=== PATIENT | female | born 1960 | race Asian ===

== ENCOUNTER 2024-06-04 02:10 | Inpatient (IN) | payer MEDICARE, OTHER ==
[~2024-06-04] VITALS: Ht 157.5 cm; Wt 68.6 kg
[2024-06-04] MEDS ORDERED: LORazepam 2 MG TABLET PO PRN (03:45)
[2024-06-04] MEDS ORDERED: HALOPERIDOL 5 MG TABLET PO PRN (03:45)
[2024-06-04] MEDS ORDERED: ZOLPIDEM TARTRATE 10 MG TABLET PO PRN (03:45)
[2024-06-04 04:16] LABS: COVID AG,FIA SOURCE NASAL SWAB
[2024-06-04 04:20] LABS: BASOPHILS % (AUTO) 0.8 % (0.0-2.0); EOSINOPHILS % (AUTO) 0.9 % (1.0-6.0); HEMATOCRIT 41.1 % (36-46); LYMPHOCYTES % (AUTO) 31.7 % (22.0-44.0); MEAN CORPUSCULAR HEMOGLOBIN 22.1 pg (26.0-34.0); MEAN CORPUSCULAR HGB CONC 31.6 G/dL (31.0-37.0); MEAN CORPUSCULAR VOLUME 70 fL (80-100); MONOCYTES # (AUTO) 0.5 K/uL (0.1-1.0); MONOCYTES % (AUTO) 7.2 % (2.0-9.0); NEUTROPHILS # (AUTO) 3.8 K/uL (1.8-7.7); NEUTROPHILS % (AUTO) 59.4 % (40.0-70.0); PLATELET COUNT (AUTO) 260 K/uL (150-450); RED BLOOD CELL COUNT(AUTO) 5.87 MIL/uL (4.00-5.20); RED CELL DISTRIBUTION WIDTH 14.2 % (11.5-14.5); WHITE BLOOD COUNT (AUTO) 6.4 K/uL (4.5-11.0)
[2024-06-04 04:23] LABS: RBC MORPHOLOGY COMMENT ABNORMAL RBC MORPH
[2024-06-04 04:28] LABS: ANION GAP 10 mmol/L (8-16); CALCIUM, TOTAL 9.1 mg/dL (8.8-10.5); CARBON DIOXIDE 29 mmol/L (22-29); CHLORIDE 101 mmol/L (98-107); CREATININE 0.79 mg/dL (0.60-1.30); GLOMERULAR FILTR. RATE CALC > 60 mL/min (>60); GLUCOSE,RANDOM 124 mg/dL (70-110); POTASSIUM 3.5 mmol/L (3.5-5.1); SODIUM SERUM 140 mmol/L (136-145); UREA NITROGEN, BLOOD 15 mg/dL (7-18)
[2024-06-04 04:29] LABS: SARS-COV2 (COVID) ANTIGEN,FIA Negative (Negative)
[2024-06-04 04:44] LABS: ALCOHOL, BLOOD (SERUM) < 3 mg/dL (0-10)
[2024-06-04] MEDS: RisperiDONE 1 MG TABLET PO ONE (06:59)
[2024-06-04 08:19] VITALS: O2SAT 97
[2024-06-04] MEDS ORDERED: PETROLATUM,WHITE 28 GM JELLY TP PRN (09:15)
[2024-06-04] MEDS ORDERED: ONDANSETRON 4 MG TABLET PO PRN (09:15)
[2024-06-04] MEDS ORDERED: BENZOCAINE/MENTHOL LOZENGE PO PRN (09:15)
[2024-06-04] MEDS ORDERED: MAGNESIUM HYDROXIDE SUSPENSION 30 ML UDCUP PO PRN (09:15)
[2024-06-04] MEDS ORDERED: BACITRACIN 28 GM OINTMENT TP PRN (09:15)
[2024-06-04] MEDS ORDERED: DOCUSATE SODIUM 100 MG CAPSULE PO PRN (09:15)
[2024-06-04] MEDS ORDERED: MAG HYDROX/ALUMINUM HYD/SIMETH ES 30 ML SUSPENSION UDCUP PO PRN (09:15)
[2024-06-04] MEDS ORDERED: IBUPROFEN 600 MG TABLET PO PRN (09:15)
[2024-06-04] MEDS ORDERED: ACETAMINOPHEN 325 MG TABLET PO PRN (09:15)
[2024-06-04] MEDS ORDERED: LOPERAMIDE HCL 2 MG CAPSULE PO PRN (09:15)
[2024-06-04] MEDS ORDERED: ALBUTEROL SULFATE HFA 90 MCG/PUFF 8 GM INHALER IH PRN (09:15)
[2024-06-04] MEDS ORDERED: OMEPRAZOLE 20 MG CAPSULE PO PRN (09:15)
[2024-06-04] MEDS ORDERED: CloNIDine HCL 0.1 MG TABLET PO PRN (09:15)
[2024-06-04 10:44] VITALS: BP 116/81; PULSE 91; RESP 18; TEMP 97; O2SAT 95
[2024-06-04] MEDS: PNEUMOCOCCAL VACCINE POLYVALENT 0.5 ML SYRINGE [PPSV23] IM. ONE (10:45)
[2024-06-05 00:26] VITALS: RESP 18
[2024-06-05 08:05] VITALS: BP 119/71; PULSE 86; RESP 17; TEMP 97.1; O2SAT 97
[2024-06-05] MEDS: MEMANTINE HCL 10 MG TABLET PO SCH (09:00)
[2024-06-05] MEDS: RisperiDONE 2 MG TABLET PO SCH (09:00)
[2024-06-05 20:55] VITALS: BP 100/70; PULSE 67; RESP 17; TEMP 98; O2SAT 100
[2024-06-05] MEDS: DONEPEZIL HCL 10 MG TABLET PO SCH (21:00)
[2024-06-06 09:34] VITALS: BP 102/79; PULSE 76; RESP 16; TEMP 97.5; O2SAT 100
[2024-06-06 20:16] VITALS: BP 118/78; PULSE 76; RESP 18; TEMP 96.5; O2SAT 98
[2024-06-07 08:07] VITALS: BP 119/78; PULSE 79; RESP 18; TEMP 97.1; O2SAT 98
[2024-06-07 20:14] VITALS: RESP 18
[2024-06-08 08:33] VITALS: BP 125/84; PULSE 76; RESP 17; TEMP 97.6; O2SAT 99
[2024-06-08 20:16] VITALS: RESP 16; O2SAT 97
[2024-06-09 08:30] VITALS: BP 135/90; PULSE 80; RESP 18; TEMP 97.9; O2SAT 100
[2024-06-09 20:16] VITALS: BP 123/88; PULSE 79; RESP 18; TEMP 98; O2SAT 96
[2024-06-10 08:27] VITALS: BP 118/90; PULSE 83; RESP 16; TEMP 97; O2SAT 96
[2024-06-10 21:01] VITALS: BP 138/96; PULSE 95; RESP 16; TEMP 96.4; O2SAT 99
[2024-06-11 08:41] VITALS: BP 123/88; PULSE 68; RESP 16; TEMP 97.7; O2SAT 98
[2024-06-11 20:20] VITALS: BP 124/90; PULSE 80; RESP 17; TEMP 97.6; O2SAT 98
[2024-06-12 08:28] VITALS: BP 132/95; PULSE 86; RESP 17; TEMP 95.9; O2SAT 97
[2024-06-12 20:51] VITALS: BP 134/82; PULSE 79; RESP 16; TEMP 97.6; O2SAT 99
[2024-06-12 20:52] VITALS: BP 134/82; PULSE 79; RESP 16; TEMP 97.6; O2SAT 99
[2024-06-13 09:16] VITALS: BP 115/74; PULSE 83; RESP 18; TEMP 97.8; O2SAT 98
[2024-06-13 20:07] VITALS: BP 120/86; PULSE 92; RESP 18; TEMP 97.4; O2SAT 99
[2024-06-14 08:18] VITALS: BP 113/79; PULSE 89; RESP 16; TEMP 97.3; O2SAT 99
[2024-06-14 20:19] VITALS: BP 134/90; PULSE 81; RESP 16; TEMP 97.6; O2SAT 96
[2024-06-15 08:16] VITALS: BP 117/91; PULSE 77; RESP 18; TEMP 98; O2SAT 98
[2024-06-15 20:25] VITALS: BP 115/83; PULSE 73; RESP 18; TEMP 97.3; O2SAT 97
[2024-06-16 08:16] VITALS: BP 121/90; PULSE 86; RESP 17; TEMP 97.3; O2SAT 98
[2024-06-16 21:40] VITALS: BP 121/83; PULSE 78; RESP 18; TEMP 96.8; O2SAT 98
[2024-06-17 08:26] VITALS: BP 132/80; PULSE 74; RESP 16; TEMP 97.6; O2SAT 96
[2024-06-17 20:08] VITALS: BP 125/89; PULSE 94; RESP 16; TEMP 97.8; O2SAT 95
[2024-06-18 08:14] VITALS: BP 124/86; PULSE 100; RESP 16; TEMP 97.3; O2SAT 98
[2024-06-18] MEDS ORDERED: MEMA10TA24 PO (09:08)
[2024-06-18] MEDS ORDERED: RISP-32 PO (09:08)
[2024-06-18] MEDS ORDERED: DONE-51 PO (09:08)
== END 2024-06-18 12:27 | disposition home or self-care (01) | DRG 881 ==
LOC: EMS 02:10 → B2S 08:04 → B2X 08:35
PROVIDERS: ADMIT Psychiatry & Neurology Psychiatry; ATTEND Psychiatry & Neurology Psychiatry
DX: F32.9 Major depressive disorder, single episode, unspecified (principal); R45.851 Suicidal ideations; F20.9 Schizophrenia, unspecified; G47.00 Insomnia, unspecified; Z20.822 Contact with and (suspected) exposure to COVID-19; K59.00 Constipation, unspecified; F41.9 Anxiety disorder, unspecified; F03.90 Unspecified dementia, unspecified severity, without behavioral disturbance, psychotic disturbance, mood disturbance, and anxiety
CPT/HCPCS: 80048; 85025; 99285; G0480